=== PATIENT | female | born 2000 | race Two or more races ===

== ENCOUNTER 2023-10-21 03:12 | Emergency (ER) | payer MEDICAID, SELFPAY ==
[~2023-10-21] VITALS: Ht 160 cm; Wt 79.0 kg
[2023-10-21 03:22] VITALS: BP 116/57; PULSE 80; RESP 16; TEMP 98
[2023-10-21] MEDS: FLUORESCEIN SOD OPTH TEST STRIP LEFTEYE ONE (04:00)
[2023-10-21] MEDS: TETRACAINE HCL 0.5% OPTH(EYE) SOLN 4ML LEFTEYE ONE (04:00)
[2023-10-21] MEDS: diphenhdrAMINE HCL 25 MG CAP PO ONE (04:39)
[2023-10-21] MEDS: FAMOTIDINE 20 MG TAB PO ONE (04:40)
[2023-10-21] MEDS: DexAMETHasone 4 MG TAB PO ONE (04:40)
[2023-10-21 04:56] VITALS: O2SAT 98
== END 2023-10-21 05:07 | disposition home or self-care (01) ==
LOC: ER 03:12
DX: S05.02XA Injury of conjunctiva and corneal abrasion without foreign body, left eye, initial encounter (principal); H10.12 Acute atopic conjunctivitis, left eye; X58.XXXA Exposure to other specified factors, initial encounter; Y93.89 Activity, other specified; Y92.89 Other specified places as the place of occurrence of the external cause; Y99.8 Other external cause status
CPT/HCPCS: 99284; J8540